=== PATIENT | female | born 1950 | race Caucasian/White ===

== ENCOUNTER 2016-09-27 16:33 | Emergency (ER) | payer MEDICARE ==
[~2016-09-27] VITALS: Ht 162.6 cm; Wt 59.0 kg
[~2016-09-27 16:33] MED LIST: AC325T PO; HYDR12.570 GT; METO100T5 PO; NAPR220C11 PO; PANT40TA2 PO; PROP50TA2 PO
--- NOTE | 2016-09-27 17:17 | ED Lower Extremity ---
General Stated Complaint: POST OP/R LEG SWELLING Source: patient Exam Limitations: no limitations History of Present Illness Time seen by provider: 17:15 Initial Comments Patient presents to ER with reports of left lower extremity swelling and a tight sensation. She is one-week postop lumbar fusion for radicular symptoms. Those radicular symptoms affect of the right leg primarily and would only occasionally affects the left leg. She denies any shortness of breath, cough or chest pain. She called Dr. Riley's office today, her surgeon, who referred her to the emergency room for evaluation of possible DVT. Onset: just prior to arrival Severity: moderate Pain/Injury Location: left leg Method of Injury: unknown Modifying Factors: Worse With Movement Allergies and Home Medications Allergies Coded Allergies: No Known Drug Allergies (Unverified , 12/05/14) Home Medications Acetaminophen 325 Mg Tab 325 MG PO NEEDED (Reported) Hydrochlorothiazide 12.5 Mg Cap 25 MG GT (Reported) Metoprolol Succinate 100 Mg Tab.sr.24h 1 EACH PO BID (Reported) Pantoprazole Sod 40 Mg Tab #30 40 MG PO DAILY Prescribed by: LALA BROWN on 12/05/14 0956 Propylthiouracil 50 Mg Tablet 50 MG PO DAILY (Reported) Constitutional: see HPI EENTM: see HPI Respiratory: no symptoms reported Cardiovascular: no symptoms reported Genitourinary: no symptoms reported Musculoskeletal: see HPI Skin: no symptoms reported Psychiatric/Neurological: No Symptoms Reported Past Fmsnnwv-Lpixpg-Yclnih Hx Patient Social History Recent Foreign Travel: No Contact w/Someone Who Travel: No Immunizations Up To Date Date of Influenza Vaccine: Jun 06, 2014 Respiratory Hx Respiratory Disorders: No Cardiovascular Hx Cardiac Disorders: No Neurological Hx Neurological Disorders: No Gastrointestinal Hx Gastrointestinal Disorders: No Musculoskeletal Hx Musculoskeletal Disorders: No Endocrine Hx Endocrine Disorders: No Physical Exam Vital Signs Vital Sign - Last 12Hours 09/27/16 17:17 Temp 98.1 Pulse 65 Resp 16 B/P 158/70 Pulse Ox 100 O2 Delivery Room Air Capillary Refill : General Appearance: WD/WN no apparent distress HEENT: PERRL/EOMI normal ENT inspection Neck: non-tender full range of motion Respiratory: no respiratory distress no accessory muscle use Hips: bilateral hip non-tender, bilateral hip normal inspection, bilateral hip normal range of motion Legs: bilateral leg other (there is trace pitting edema bilateral lower extremities, the left calf is slightly tighter than the right. No erythema to suggest cellulitis.) Knees: bilateral knee non-tender, bilateral knee normal inspection, bilateral knee normal range of motion Ankles: bilateral ankle non-tender, bilateral ankle normal inspection, bilateral ankle normal range of motion Feet: bilateral foot non-tender, bilateral foot normal inspection, bilateral foot normal range of motion Neurologic/Psychiatric: alert normal mood/affect oriented x 3 Skin: normal color warm/dry Progress/Results/Core Measures Results/Orders Lab Results Laboratory Tests Test 09/27/16 17:19 Range/Units Anion Gap 10 5-14 MMOL/L BUN/Creatinine Ratio 20 Basophils # (Auto) 0.0 0.0-0.1 10^3/uL Basophils (%) (Auto) 0 0-10 % Blood Urea Nitrogen 13 7-18 MG/DL Calcium Level 8.9 8.5-10.1 MG/DL Carbon Dioxide Level 30 21-32 MMOL/L Chloride Level 94 L 98-107 MMOL/L Creatinine 0.66 0.60-1.30 MG/DL Eosinophils # (Auto) 0.1 0.0-0.3 10^3/uL Eosinophils (%) (Auto) 2 0-10 % Estimat Glomerular Filtration Rate > 60 Glucose Level 104 70-105 MG/DL Hematocrit 33 L 35-52 % Hemoglobin 11.1 L 11.5-16.0 G/DL Lymphocytes # (Auto) 1.7 1.0-4.0 X 10^3 Lymphocytes (%) (Auto) 18 12-44 % Mean Corpuscular Hemoglobin 31 25-34 PG Mean Corpuscular Hemoglobin Concent 34 32-36 G/DL Mean Corpuscular Volume 91 80-99 FL Mean Platelet Volume 8.6 7.4-10.4 FL Monocytes # (Auto) 1.1 H 0.0-1.0 X 10^3 Monocytes (%) (Auto) 12 0-12 % Neutrophils # (Auto) 6.6 1.8-7.8 X 10^3 Neutrophils (%) (Auto) 69 42-75 % Platelet Count 371 130-400 10^3/uL Potassium Level 3.3 L 3.6-5.0 MMOL/L Red Blood Count 3.63 L 4.35-5.85 10^6/uL Red Cell Distribution Width 12.1 10.0-14.5 % Sodium Level 134 L 135-145 MMOL/L White Blood Count 9.6 4.3-11.0 10^3/uL My Orders Orders-TRISTAN RIOS APRN Cbc With Automated Diff (09/27/16 17:15) Basic Metabolic Panel (09/27/16 17:15) Us Venous Lower Ext Lt (09/27/16 17:15) Vital Signs/I&O Vital Sign - Last 12Hours 09/27/16 17:17 Temp 98.1 Pulse 65 Resp 16 B/P 158/70 Pulse Ox 100 O2 Delivery Room Air Departure Communication Time/Spoke to Admitting Phy: 17:55 Progress Notes Venous Ultrasound left leg negative for DVT. Patient states she's been sitting in a recliner with her legs down. This is likely the cause of her swelling. She is oriented on HCTZ. Advised her to keep her legs elevated and will give her a pain of compression stockings. Impression Impression: Primary Impression: postoperative pedal edema Disposition: 01 HOME, SELF-CARE Condition: Stable Departure-Patient Inst. Decision time for Depature: 17:57 Referrals: JAMIE MALONE MD (PCP/Family) Primary Care Physician Patient Instructions: Dependent Edema (DC) Add. Discharge Instructions: 1. Elevate her legs as possible. 2. Have her . The tight stockings on. Wear them during the day and you may take them off at night. Copy Copies To 1: DARINEL RILEY MD, PETER J APRN Sep 27, 2016 17:17
[2016-09-27 17:27] LABS: BASOPHILS % (AUTO) 0 % (0-10); EOSINOPHILS # (AUTO) 0.1 10^3/uL (0.0-0.3); EOSINOPHILS % (AUTO) 2 % (0-10); LYMPHOCYTES # (AUTO) 1.7 X 10^3 (1.0-4.0); LYMPHOCYTES % (AUTO) 18 % (12-44); MEAN CORPUSCULAR HEMOGLOBIN 31 PG (25-34); MEAN CORPUSCULAR HGB CONC 34 G/DL (32-36); MEAN CORPUSCULAR VOLUME 91 FL (80-99); MEAN PLATELET VOLUME 8.6 FL (7.4-10.4); MONOCYTES # (AUTO) 1.1 X 10^3 (0.0-1.0); MONOCYTES % (AUTO) 12 % (0-12); NEUTROPHILS # (AUTO) 6.6 X 10^3 (1.8-7.8); NEUTROPHILS % (AUTO) 69 % (42-75); PLATELET COUNT 371 10^3/uL (130-400); RED BLOOD COUNT 3.63 10^6/uL (4.35-5.85); RED CELL DISTRIBUTION WIDTH 12.1 % (10.0-14.5); WHITE BLOOD COUNT 9.6 10^3/uL (4.3-11.0)
[2016-09-27 17:45] LABS: ANION GAP 10 MMOL/L (5-14); BLOOD UREA NITROGEN 13 MG/DL (7-18); BUN/CREATININE RATIO 20; CALCIUM 8.9 MG/DL (8.5-10.1); CARBON DIOXIDE 30 MMOL/L (21-32); CHLORIDE 94 MMOL/L (98-107); CREATININE SERUM 0.66 MG/DL (0.60-1.30); GFR ESTIMATED > 60; GLUCOSE 104 MG/DL (70-105); POTASSIUM 3.3 MMOL/L (3.6-5.0); SODIUM 134 MMOL/L (135-145)
--- NOTE | 2016-09-27 18:04 | Diagnostic Imaging Report ---
PROCEDURE: US left lower extremity venous. TECHNIQUE: Multiple real-time grayscale images were obtained over the left lower extremity in various projections. Additional duplex Doppler and color Doppler images were also obtained. INDICATION: Left leg swelling Comparison: Unavailable Findings: Normal flow, compression, and augmentation is noted within the visualized deep venous structures of the left lower extremity. Impression: No evidence of a deep venous thrombosis within the left lower extremity. Dictated by: Dictated on workstation # [id number]
[2016-09-27 18:17] VITALS: BP 158/70
== END 2016-09-27 18:17 | disposition home or self-care (01) ==
LOC: EDUNIT# 16:33 → ER 16:35
DX: R60.0 Localized edema (principal); Z98.1 Arthrodesis status
CPT/HCPCS: 36415; 80048; 85025; 99283

== ENCOUNTER → 2017-10-04 | Outpatient (CLI) | payer MEDICARE ==
--- NOTE | 2017-10-04 15:38 | Diagnostic Imaging Report ---
PROCEDURE: CT lumbar spine without contrast. TECHNIQUE: Multiple contiguous axial images were obtained through the lumbar spine without the use of intravenous contrast. Sagittal and coronal reformations were then performed. INDICATION: Back pain. Contiguous axial sections were taken through the lumbar spine. Sagittal and coronal reconstructed images were also performed. There are no previous CT lumbar spine examinations available for comparison. FINDINGS: The MRI lumbar spine exam performed on 08/06/16 did note degenerative disc and facet changes resulting in spinal stenosis at L3-L4 and L4-L5. In the interval since the prior exam, the patient has undergone a surgical procedure. There are now bilateral pedicle screws in place at L3, L4, L5 and S1. There are interbody devices at the L3-L4, L4-L5 and L5-S1 levels as well. The orthopedic hardware seems to be in good position. The artifact related to the orthopedic hardware does limit the sensitivity of the evaluation of the thecal sac at the operative levels. There is no obvious spinal stenosis or nerve root encroachment noted. As noted on the prior exam, there is narrowing of the disc space at L2-L3 and there is slight retrolisthesis of L2 with respect to L3. There is also a disc bulge centrally at this level. The AP diameter of the thecal sac is narrowed to approximately 9 mm. There is also narrowing of the neuroforamen bilaterally at this level, particularly on the right. The remainder of the lumbar spine is unremarkable for spinal stenosis or nerve root encroachment. There is no fracture or acute bony abnormality appreciated. There is no sign of a paraspinal mass. IMPRESSION: 1. In the interval since the prior exam, the patient has undergone a fusion of L3, L4, L5 and S1. The orthopedic hardware appears to be in good position. The artifact related to the orthopedic hardware does limit the evaluation of the thecal sac. There is no obvious central stenosis identified. If further evaluation is desired, then MRI would be recommended. 2. There does appear to be mild central stenosis at L2-L3 and there is narrowing of the neuroforamen bilaterally, particularly on the right. 3. There is no acute bony abnormality visualized. Dictated by: Dictated on workstation # [id number]
== END ==
LOC: RAD 14:05
PROVIDERS: ATTEND Orthopaedic Surgery Orthopaedic Surgery of the Spine
DX: M48.061 Spinal stenosis, lumbar region without neurogenic claudication (principal); Z98.1 Arthrodesis status
CPT/HCPCS: 72131

== ENCOUNTER → 2018-01-24 | Outpatient (CLI) | payer MEDICARE ==
[~2018-01-24] MED LIST changes: +HYDR25TA4 PO; +IOHEXOL 350 MG/ML 100 ML (OMNIPAQUE 350) VIAL IV ONE; +LOSA50TA36 PO; +METO-370 PO; +NS 250 ML (IVPB) BAG IV ONE; +OMEP20CA12 PO
--- NOTE | 2018-01-24 10:17 | Diagnostic Imaging Report ---
PROCEDURE: CT chest, abdomen, and pelvis with contrast. TECHNIQUE: Multiple contiguous axial images were obtained through the chest, abdomen, and pelvis after the administration of intravenous contrast. INDICATION: Mid abdominal pain and bloating. COMPARISON: No prior studies are available for comparison. FINDINGS: CT chest: No pulmonary infiltrates, nodules or masses are seen. IMPRESSION: Unremarkable CT of the chest. CT abdomen and pelvis: Liver contains a tiny low density in the right lobe posteriorly, too small to characterize but likely a cyst. The gallbladder is unremarkable. The pancreas and spleen are unremarkable. No adrenal mass is detected. The kidneys are unremarkable. Aorta is heavily calcified but nonaneurysmal. The small and large bowel loops are of normal caliber. No obstruction is seen. There is no ascites. The bladder and uterus are unremarkable. There are postop changes of posterior instrumented fusion in the lower lumbar spine. No definite abdominal or pelvic lymphadenopathy is seen. IMPRESSION: Essentially unremarkable CT of the abdomen and pelvis. No acute abnormality is detected. Dictated on workstation # [id number]
== END ==
LOC: RAD 08:31
PROVIDERS: ATTEND Family Medicine
DX: R10.9 Unspecified abdominal pain (principal); R14.0 Abdominal distension (gaseous)
CPT/HCPCS: 71260; 74177

== ENCOUNTER 2018-02-01 05:32 | Outpatient (CLI) | payer MEDICARE ==
[~2018-02-01] VITALS: Ht 162.6 cm; Wt 61.7 kg
[~2018-02-01 05:32] MED LIST changes: -HYDR25TA4 PO; -IOHEXOL 350 MG/ML 100 ML (OMNIPAQUE 350) VIAL IV ONE; -LOSA50TA36 PO; -METO-370 PO; -NS 250 ML (IVPB) BAG IV ONE; -OMEP20CA12 PO
[2018-02-01] MEDS ORDERED: OMEP20CA12 PO (13:43)
[2018-02-01] MEDS ORDERED: HYDR25TA4 PO (13:43)
[2018-02-01] MEDS ORDERED: PROP50TA2 PO (13:43)
[2018-02-01] MEDS ORDERED: METO-370 PO (13:43)
[2018-02-01] MEDS ORDERED: LOSA50TA36 PO (13:43)
== END 2018-02-01 13:45 ==
LOC: PREOP 05:32
PROVIDERS: ATTEND Internal Medicine
DX: Z01.818 Encounter for other preprocedural examination (principal); R13.10 Dysphagia, unspecified

== ENCOUNTER 2018-02-02 08:10 | Day surgery (SDC) | payer MEDICARE ==
--- NOTE | 2018-02-01 11:29 | HISTORY AND PHYSICAL ---
DATE OF SERVICE: EGD HISTORY AND PHYSICAL HISTORY OF PRESENT ILLNESS: The patient is a 67-year-old white female, who reports for the past several months, she has had a lump in the throat sensation, pointing to the mid upper precordial area. Sometimes there is some discomfort with swallowing with a sensation that food is hanging up. She has not had any regurgitation. I last performed an EGD on her in 11/2014, at which time she had evidence for erosive esophagitis with a benign appearing stricture. She underwent balloon dilatation with resolution of dysphagia at that time. She has been on chronic PPI therapy most likely omeprazole for insurance purposes. She has been trying to take it less frequently, but feels as though her symptoms are worse if she skips it for more than a couple of days. She has also had a problem with cough that she has attributed to sinus symptoms and allergies. It is worse during the day than it is at night. She underwent colonoscopy 3 years ago as well and it was an unremarkable examination. She has sometimes had some intermittent nausea with loose stools and gas, but has noted no melena or bright red blood per rectum. She reports no associated weight loss. PAST MEDICAL HISTORY: Significant for hypertension and hyperthyroidism. MEDICATIONS ON ADMISSION: Include metoprolol ER 50 mg daily, hydrochlorothiazide 25 mg daily, PTU 50 mg daily, omeprazole 20 mg daily, losartan 50 mg daily. She occasionally takes alprazolam 0.5 mg breaking a 1 mg tablet in half at night. PHYSICAL EXAMINATION: GENERAL: Reveals somewhat anxious appearing white female, otherwise in no acute distress. VITAL SIGNS: Blood pressure was 110/70 with a heart rate of 76 and regular. HEENT: Unremarkable. Sclerae nonicteric. Oral cavity is clear with a Mallampati class 2 oropharyngeal configuration. No erythema is noted. NECK: Reveals no JVD, adenopathy or bruits. CHEST: Clear to auscultation. CARDIOVASCULAR: Reveals a regular rate and rhythm without murmur, S3 or S4. ABDOMEN: Soft, supple without mass, organomegaly or tenderness. EXTREMITIES: Reveal no cyanosis, clubbing or edema. FAMILY HISTORY: She is not aware of any family history for GI tract malignancy. SOCIAL HISTORY: She has no past smoking history. Retired, with no significant alcohol consumption. ASSESSMENT AND PLAN: Recurrent mild dysphagia likely aggravated by PPI discontinuance over concern about medication side effect of the PPI family in an individual, who has known past erosive esophagitis and a benign stricture that required dilatation in 2014. The patient is set up for a repeat EGD on 02/02/2018. Discussed the importance of regular PPI therapy use. She has had no side effects from the medication. There is, however, a family history for osteoporosis and she has not previously accomplished a bone density evaluation. I took the liberty of setting her up for a DEXA scan. PPI therapy does somewhat increase her risk for small bowel bacterial overgrowth that could be contributing to some of her gas and intermittent diarrhea issues. We will discuss this further after EGD evaluation. I thank you for the referral of this pleasant lady. Job ID: [id number] DocumentID: [id number] Dictated Date: 01/31/2018 16:46:52 Embosser Operator Date: 01/31/2018 17:09:09 Dictated By: LALA BROWN MD MTDD
[~2018-02-02] VITALS: Ht 162.6 cm; Wt 61.7 kg
[~2018-02-02 08:10] MED LIST changes: +HYDR25TA4 PO; +LOSA50TA36 PO; +METO-370 PO; +OMEP20CA12 PO
[2018-02-02 08:30] VITALS: BP 135/69
[2018-02-02] MEDS ORDERED: HURRICAINE EXT TUBE (BENZOCAINE) XX PRN (08:30)
[2018-02-02] MEDS ORDERED: D5 LR IV SOLUTION 1,000 ML IV PRN (08:30)
[2018-02-02] MEDS ORDERED: LIDOCAINE JELLY 2% (XYLOCAINE) 5 ML TUBE MM PRN (08:30)
[2018-02-02] MEDS ORDERED: D5 LR IV SOLUTION 1,000 ML IV ONE (08:33)
--- NOTE | 2018-02-02 08:55 | Pre-Op Note & Conscious Sedat ---
Pre-Operative Progress Note H&P Reviewed The H&P was reviewed, patient examined and no changes noted. Date H&P Reviewed: Feb 02, 2018 Time H&P Reviewed: 08:55 Conscious Sedation Pre-Proced ASA Class: 2 Airway Mallampati Classification: (seldovia appropriate class) I. II. III, IV Lungs Heart ASA score ASA 1: a normal healthy patient ASA 2: a patient with a mild systemic disease (mid diabetes, controlled hypertension, obesity ASA 3: a patient with a severe systemic disease that limits activity (angina , COPD, prior Myocardial infarction) ASA 4: a patient with an incapacitating disease that is a constant threat to life (CHF, renal failure) ASA 5: a moribund patient not expected to survive 24 hrs. (ruptured aneurysm) ASA 6: a declared brain patient whose organs are being harvested. For emergent operations, add the letter E after the classification Grade 2 Sedation Plan: Analgesia, Amnesia, Plan communicated to team members, Discussed options with patient/fam, Discussed risks with patient/fam Note The patient is an appropriate candidate to undergo the planned procedure, sedation, and anesthesia. The patient immediately re-assessed prior to indication. LALA BROWN MD Feb 02, 2018 08:55
[2018-02-02] MEDS ORDERED: LIDOCAINE JELLY 2% (XYLOCAINE) 5 ML TUBE ONE (09:35)
[2018-02-02] MEDS ORDERED: fentaNYL INJECTION 100 MCG/2 ML AMP ONE (09:36)
[2018-02-02] MEDS ORDERED: MIDAZOLAM 2 MG/2 ML (VERSED) VIAL ONE ×2 (09:36)
[2018-02-02] MEDS ORDERED: HURRICAINE EXT TUBE (BENZOCAINE) ONE (09:36)
[2018-02-02] MEDS: fentaNYL INJECTION 100 MCG/2 ML AMP IVP PRN ×2 (09:40→09:43)
[2018-02-02] MEDS: MIDAZOLAM 2 MG/2 ML (VERSED) VIAL IVP PRN ×2 (09:41→09:45)
[2018-02-02 10:20] VITALS: BP 136/46
[2018-02-02 10:43] VITALS: BP 123/78
[2018-02-02 10:46] VITALS: BP 123/78
--- NOTE | 2018-02-02 17:04 | OPERATIVE REPORT ---
DATE OF SERVICE: EGD SUMMARY INDICATION FOR THE PROCEDURE: Dysphagia. DESCRIPTION OF PROCEDURE: The patient was placed in the left lateral decubitus position. The endoscope was inserted in the oral cavity and under direct visualization, the esophagus was intubated. The endoscope was passed down the esophagus through the stomach into the second portion of the duodenum. A careful inspection was made as the scope withdrawn. The patient tolerated the procedure well. FINDINGS: Proximal and mid esophagus were unremarkable. The GE junction was proximally placed at 36 cm from the incisural orifice secondary to a moderate-sized hiatal hernia. Again noted was evidence for either old benign stricture or a small Schatzki's ring at roughly the level of the GE junction. There is some mild erythema, but no evidence for erosive esophagitis. Photographic documentation was obtained. Due to history of some dysphagia to solids, the patient then underwent balloon dilatation to a 60-Malay size with no difficulty and no significant bleeding, good visualization post procedure. The cardia, fundus, antrum, pylorus, pyloric channel, the duodenal bulb and second portion of the duodenum were unremarkable. ASSESSMENT: Moderate size hiatal hernia is present with either an old stricture at the level of the distal esophagus versus a Schatzki's ring. The patient did undergo dilatation. Symptoms have been aggravated by the fact that the patient did discontinue acid blocking therapy. She had read about side effects of chronic proton pump inhibitor therapy use. She has an upcoming DEXA scan. If she does not have evidence for osteopenia or osteoporosis, we would advocate continued chronic PPI therapy. As she did not have evidence for erosive esophagitis today, if she does have osteoporosis or osteopenia, we would advocate b.i.d. H2 carol therapy, Pepcid or Zantac at 20 b.i.d. or 150 b.i.d. respectively. I thank you for the referral of this pleasant lady. Job ID: [id number] DocumentID: [id number] Dictated Date: 02/02/2018 10:13:44 Business Manager [employer] Date: 02/02/2018 17:04:09 Dictated By: LALA BROWN MD [facility]
== END 2018-02-02 10:50 | disposition home or self-care (01) ==
LOC: ENDO 08:10
PROVIDERS: ATTEND Internal Medicine
DX: K22.2 Esophageal obstruction (principal); K44.9 Diaphragmatic hernia without obstruction or gangrene; I10 Essential (primary) hypertension; Z79.899 Other long term (current) drug therapy

== ENCOUNTER → 2018-02-08 | Outpatient (CLI) | payer MEDICARE ==
--- NOTE | 2018-02-08 11:30 | Diagnostic Imaging Report ---
Indication: Screening for osteoporosis. Bone mineral analysis was performed of bilateral hips. The patient has had prior back surgery therefore analysis of the lumbar spine cannot be performed. The bone mineral density of the left femoral neck is 0.724 with a T score of -2.3. Bone mineral density right femoral neck is 0.701 with T score of -2.4. Impression: Findings consistent with osteopenia of bilateral femoral necks. Dictated by: Dictated on workstation # [id number]
== END ==
LOC: RAD 08:27
PROVIDERS: ATTEND Internal Medicine
DX: Z13.820 Encounter for screening for osteoporosis (principal); Z82.62 Family history of osteoporosis
CPT/HCPCS: 77080

== ENCOUNTER → 2018-07-10 | Outpatient (CLI) | payer MEDICARE ==
[~2018-07-10] MED LIST changes: -LOSA50TA36 PO; +LOSA50TA7 PO
--- NOTE | 2018-07-10 14:02 | Diagnostic Imaging Report ---
INDICATION: Routine screening. COMPARISON: 01/13/2016 and 07/09/2013. TECHNIQUE: 2D and 3D bilateral screening mammography was performed with CAD. FINDINGS: Scattered fibroglandular densities are identified bilaterally. A circumscribed density in the retroareolar left breast appears stable and most consistent with benign etiology. No new mass or malignant appearing microcalcifications are seen. The axillae are unremarkable. IMPRESSION: No mammographic features suspicious for malignancy are identified. ACR BI-RADS Category 2: Benign findings. Result letter will be mailed to the patient. Note: At least 10% of breast cancer is not imaged by mammography. Dictated by: Dictated on workstation # [id number]
== END ==
LOC: RAD 09:42
PROVIDERS: ATTEND Family Medicine
DX: Z12.31 Encounter for screening mammogram for malignant neoplasm of breast (principal)
CPT/HCPCS: 77067

== ENCOUNTER → 2019-07-19 | Outpatient (CLI) | payer MEDICARE ==
[~2019-07-19] MED LIST changes: +LOSA50TA63 PO; -LOSA50TA7 PO; -OMEP20CA12 PO; +OMEP20CA13 PO
--- NOTE | 2019-07-19 12:17 | Diagnostic Imaging Report ---
INDICATION: Routine screening. Comparison is made with prior mammogram 07/10/2018 and 01/13/2016. 2-D and 3-D bilateral screening mammography was performed with a Computer Aided Detection (CAD) system. 3-D tomosynthesis was also performed and reviewed. FINDINGS: Scattered fibroglandular densities are identified bilaterally. Circumscribed density retroareolar left breast is stable. No new mass or malignant appearing microcalcifications are seen. Axillae are unremarkable. IMPRESSION: No mammographic features suspicious for malignancy are identified. ACR BI-RADS Category 2: Benign findings. Result letter will be mailed to the patient. Note: At least 10% of breast cancer is not imaged by mammography. Dictated by: Dictated on workstation # [id number]
== END ==
LOC: RAD 10:21
PROVIDERS: ATTEND Family Medicine
DX: Z12.31 Encounter for screening mammogram for malignant neoplasm of breast (principal)
CPT/HCPCS: 77067

== ENCOUNTER → 2020-07-20 | Outpatient (CLI) | payer MEDICARE ==
[~2020-07-20] MED LIST changes: -METO-370 PO; +METO50TA7 PO; -OMEP20CA13 PO; +OMEP20CA18 PO
--- NOTE | 2020-07-20 15:21 | Diagnostic Imaging Report ---
INDICATION: Screening. TECHNIQUE: The current study was also evaluated with a Computer Aided Detection (CAD) system. 3-D Tomographic imaging was also performed. COMPARISON: 07/19/2019, 07/10/2018, and 01/13/2016. FINDINGS: There are scattered fibroglandular densities bilaterally. There are a few benign type calcifications. There is no dominant mass, spiculated lesion, or suspicious calcification identified. The skin, nipples, and axillae are unremarkable. IMPRESSION: Benign findings as above. ACR BI-RADS Category 2: Benign findings. Result letter will be mailed to the patient. Note: At least 10% of breast cancer is not imaged by mammography. Dictated by: Dictated on workstation # [id number]
== END ==
LOC: RAD 14:45
PROVIDERS: ATTEND Internal Medicine
DX: Z12.31 Encounter for screening mammogram for malignant neoplasm of breast (principal)
CPT/HCPCS: 77063; 77067

== ENCOUNTER → 2021-07-27 | Outpatient (CLI) | payer MEDICARE ==
--- NOTE | 2021-07-27 13:22 | Diagnostic Imaging Report ---
EXAMINATION: Digital mammogram bilateral screening with CAD. INDICATION: Screening. COMPARISON: This study was compared to the prior exams of 07/20/2020, 07/19/2019, and 07/10/2018. PERSONAL HISTORY: At this time, there are no current complaints. FINDINGS: The fibroglandular tissue in both breasts is heterogeneously dense. This does limit the sensitivity of this exam. Overall, there has been no significant change since the prior study. The small benign-appearing nodular asymmetry in the retroareolar region of the left breast seen on the previous exams is again evident and actually seems somewhat smaller. There is no primary or secondary sign of malignancy noted. IMPRESSION: There is no evidence of malignancy. ACR BI-RADS Category 1: Negative. Result letter will be mailed to the patient. Note: At least 10% of breast cancer is not imaged by mammography. Dictated by: Dictated on workstation # [id number]
== END ==
LOC: RAD 09:15
PROVIDERS: ATTEND Internal Medicine
DX: Z12.31 Encounter for screening mammogram for malignant neoplasm of breast (principal)
CPT/HCPCS: 77063; 77067

== ENCOUNTER → 2022-08-23 | Outpatient (CLI) | payer MEDICARE ==
--- NOTE | 2022-08-23 15:57 | Diagnostic Imaging Report ---
INDICATION: Routine screening. Comparison is made prior mammogram from 07/27/2021 and 07/20/2020. 2-D and 3-D bilateral screening mammography was performed with CAD. Both breasts are heterogeneously dense, limiting the sensitivity of mammography. Circumscribed density retroareolar left breast are stable. No spiculated mass or malignant-appearing microcalcifications are seen. Axillae are unremarkable. IMPRESSION: BI-RADS Category 2 No mammographic features suspicious for malignancy are identified. Dictated by: Dictated on workstation # [id number]
== END ==
LOC: RAD 10:33
PROVIDERS: ATTEND Internal Medicine
DX: Z12.31 Encounter for screening mammogram for malignant neoplasm of breast (principal)
CPT/HCPCS: 77063; 77067

== ENCOUNTER 2023-04-26 10:41 | Outpatient (CLI) | payer MEDICARE ==
[~2023-04-26] VITALS: Ht 162.6 cm; Wt 61.4 kg
[2023-04-26] MEDS ORDERED: ESOM40CA52 PO ×2 (14:50)
[2023-04-26] MEDS ORDERED: CHOL200074 PO ×2 (14:50)
[2023-04-26] MEDS ORDERED: MELO15TA39 PO ×2 (14:50)
[2023-04-26] MEDS ORDERED: OMEG-90 PO ×2 (14:50)
[2023-04-26] MEDS ORDERED: VALS40TA9 PO (14:50)
[2023-04-26] MEDS ORDERED: VALS80TA31 PO ×2 (14:51)
== END 2023-04-26 15:00 | disposition home or self-care (01) ==
LOC: PREOP 10:41
PROVIDERS: ATTEND Internal Medicine
DX: Z01.818 Encounter for other preprocedural examination (principal)

== ENCOUNTER 2023-04-28 07:36 | Day surgery (SDC) | payer MEDICARE ==
[~2023-04-28] VITALS: Ht 162.6 cm; Wt 61.4 kg
[~2023-04-28 07:36] MED LIST changes: +CHOL200074 PO; +ESOM40CA52 PO; +MELO15TA39 PO; +OMEG-90 PO; +VALS40TA9 PO; +VALS80TA31 PO
[2023-04-28] MEDS ORDERED: LACTATED RINGERS 1,000 ML 1,000 ML IV STA (07:43)
[2023-04-28] MEDS ORDERED: HURRICAINE EXT TUBE (BENZOCAINE) XX PRN (07:45)
--- NOTE | 2023-04-28 07:51 | Pre-Op Note & Conscious Sedat ---
Pre-Operative Progress Note Date H&P Reviewed: Apr 28, 2023 Time H&P Reviewed: 07:50 History & Physical: H&P Reviewed, Patient Examed, No changes noted Pre-Op Diagnosis: dysphagia Moderate Sedation PreProcedure ASA Score 2 Airway Lungs Heart ASA score ASA 1: a normal healthy patient ASA 2: a patient with a mild systemic disease (mid diabetes, controlled hypertension, obesity ASA 3: a patient with a severe systemic disease that limits activity (angina, COPD, prior Myocardial infarction) ASA 4: a patient with an incapacitating disease that is a constant threat to life (CHF, renal failure) ASA 5: a moribund patient not expected to survive 24 hrs. (ruptured aneurysm) ASA 6: a declared brain- patient whose organs are being harvested. For emergent operations, add the letter E after the classification Mallampati Classification Grade 1 Sedation Plan Analgesia, Amnesia, Plan communicated to team members, Discussed options with patient/fam, Discussed risks with patient/fam The patient is an appropriate candidate to undergo the planned procedure, sedation, and anesthesia. The patient immediately re-assessed prior to indication. LALA BROWN MD Apr 28, 2023 07:50
[2023-04-28 07:55] VITALS: BP 174/80
[2023-04-28] MEDS ORDERED: proPOfol INJECTION 200 MG/20 ML VIAL IV ONE (08:39)
--- NOTE | 2023-04-28 08:57 | Progress Note-Post Operative ---
Post-Procedure Note Physician (s)/Assembler Fluorescent Lights (s) Physician LALA BROWN MD Pre-Procedure Diagnosis Pre-Procedure Diagnosis: dysphagia Post-Procedure Diagnosis Post-operative diagnosis: The patient was placed in the left lateral decubitus position. The endoscope was inserted into the oral cavity and under direct visualization the esophagus intubated. This was passed down the esophagus to the stomach and second portion of the duodenum. Careful suction was made as the endoscope withdrawn. Findings: The posterior pharynx true and false vocal folds arytenoid aperture and epiglottis were unremarkable to visual inspection. The proximal mid and distal esophagus are unremarkable except for the fact that there is a large hiatal hernia approximately 8 cm with about 2 cm of the stomach being present above the level of the diaphragm Z-line is distinct there is no evidence to suggest Leiva's and no evidence for erosive esophagitis. Otherwise the cardia the stomach unremarkable as well as the fundus antrum pylorus pyloric channel duodenal bulb and second portion of the of the duodenum. A/P 1. Large approximately 8 cm hiatal hernia is present without evidence for erosive esophagitis. Discussed the importance of careful attention to mastication slowing down eating time and most importantly elevating the head of her bed and not eating 3 to 4 hours before bedtime continue esomeprazole in the morning and as needed antiacid therapy. Patient was reassured. LALA BROWN MD Apr 28, 2023 08:57
--- NOTE | 2023-04-28 08:57 | Anesthesia-General Post-Op ---
MAC Patient Condition Mental Status/LOC: Same as Preop Cardiovascular: Satisfactory Nausea/Vomiting: Absent Respiratory: Satisfactory Pain: Controlled Complications: Absent Post Op Complications Complications None Follow Up Care/Instructions Patient Instructions None needed. Anesthesiology Discharge Order Discharge Order Patient is doing well, no complaints, stable vital signs, no apparent adverse anesthesia problems. No complications reported per nursing. LUH BROOKS CRNA Apr 28, 2023 08:57
[2023-04-28 09:00] VITALS: BP 164/76
[2023-04-28 09:14] VITALS: BP 163/73
[2023-04-28 09:50] VITALS: BP 163/73
--- NOTE | 2023-05-02 17:27 | HISTORY AND PHYSICAL ---
DATE OF SERVICE: 04/28/23 EGD HISTORY AND PHYSICAL HISTORY OF PRESENT ILLNESS: The patient is a 73-year-old white female who presented to the office reporting increased problems with dysphagia over the past month. She will sometimes wake up at night, coughing and choking. She has also a lump in throat sensation, dysphagia to solids only. Sometimes, she feels like she has to force things down with liquids. She has a history of known hiatal hernia with lower esophageal sphincter laxity. In the past, she had to have the head of her bed elevated, but when they got a new mattress, she has been sleeping flat for the past 2 years. She denies melena or bright red blood per rectum and has not experienced any associated weight loss. Her last EGD was 5 years ago, at which time she did not have evidence for erosive esophagitis, just the hiatal hernia and evidence for lower esophageal sphincter laxity. Did not have evidence for Leiva's at that time on review of her records. She denies melena or bright red blood per rectum. PHYSICAL EXAMINATION: GENERAL: Reveals a white female, little anxious, but no acute distress. VITAL SIGNS: Weight was up 2.2 pounds at 137, blood pressure 124/74. CHEST: Clear. CARDIOVASCULAR: Reveals regular rate and rhythm without murmur, S3, or S4. ABDOMEN: Soft, supple without mass, organomegaly, or tenderness. ASSESSMENT AND PLAN: The patient is being set up for diagnostic EGD due to recent onset dysphagia with increased reflux symptoms despite 40 mg of escitalopram each morning. She was advised to take 2 Tums at bedtime, elevate the head of her bed again with a wedge and discussed the importance of limiting her food and fluid 3-4 hours before bedtime with the goal of trying go to bed with a relatively empty stomach. She will continue 40 mg of esomeprazole. Prep instructions were given and questions were answered. Job ID: [id number] DocumentID: [id number] Dictated Date: 04/26/2023 11:53:06 Big Data Engineer Date: 04/26/2023 12:07:00 Dictated By: LALA BROWN MD [id number] <Dictated by LALA BROWN MD> <Electronically signed by LALA BROWN MD> 04/26/23 1541 [facility]
== END 2023-04-28 10:00 | disposition home or self-care (01) ==
LOC: ENDO 07:36
PROVIDERS: ATTEND Internal Medicine
DX: R13.10 Dysphagia, unspecified (principal); K44.9 Diaphragmatic hernia without obstruction or gangrene; K21.9 Gastro-esophageal reflux disease without esophagitis; Z79.899 Other long term (current) drug therapy